=== PATIENT | male | born 1960 | race Two or more races ===

== ENCOUNTER 2020-09-14 11:00 | Outpatient (CLI) | payer OTHER ==
[~2020-09-14 11:00] MED LIST: DIOVAN160 M1 PO
== END 2020-09-14 13:00 | disposition home or self-care (01) ==
LOC: ASH CLINIC 11:00
PROVIDERS: ATTEND Internal Medicine Pulmonary Disease
DX: Z23 Encounter for immunization (principal); U07.1 COVID-19